=== PATIENT | male | born 1955 | race Caucasian/White ===

== ENCOUNTER 2017-06-22 13:05 | Emergency (ER) | payer OTHER ==
[~2017-06-22] VITALS: Ht 188 cm; Wt 102.1 kg
[~2017-06-22 13:05] MED LIST: ASPI325T8 PO; LISI-334 PO; METF-620 PO; WARF-78 PO
[2017-06-22] MEDS ORDERED: HYDROcodone/APAP 5/325MG 1 TAB TABLET PO ONE (15:00)
--- NOTE | 2017-06-22 15:09 | PHYS DOC ---
Past Medical History Past Medical History: Arthritis Past Surgical History: No Surgical History Alcohol Use: None Drug Use: Marijuana Adult General Chief Complaint Chief Complaint: OTHER COMPLAINTS HPI HPI Patient is a 62 year old male who presents with pain on his third and fourth digits of his right hand addition to swelling of his fingers. He states he was admitted here and was recently discharged on Coumadin. His neighbor is with him as helps Social medical history. She states that he had a clot in his ulnar artery of which vascular surgery tried to TPA and was only partially successful. They stated that he will have some sloughing of the skin over the third fourth and fifth digits however the last 3 days the third and fourth digit fingertip has turned black and necrotic and some swelling of his fingers. His INR was checked and was subtherapeutic a week ago and he was unable to get a hold of his primary care physician to given directions on how to increase his Coumadin levels. He did get in today with primary care physician who wanted be evaluated in the emergency department. He has received Forestdale from her care physician and on arrival to the ER and his pain is better now. He states he's had severe pain over the last 3 days and he was even had by some Forestdale along the street in order to help with his pain. He denies any fevers or chills or nausea or vomiting. Review of Systems Review of Systems Constitutional: Denies fever or chills [] Eyes: Denies change in visual acuity, redness, or eye pain [] HENT: Denies nasal congestion or sore throat [] Respiratory: Denies cough or shortness of breath [] Cardiovascular: No additional information not addressed in HPI [] GI: Denies abdominal pain, nausea, vomiting, bloody stools or diarrhea [] : Denies dysuria or hematuria [] Musculoskeletal: Denies back pain, positive for right third and fourth digit pain of right hand Integument: Denies rash or skin lesions [] Neurologic: Denies headache, focal weakness or sensory changes [] Endocrine: Denies polyuria or polydipsia [] Current Medications Current Medications Current Medications Medications (Trade) Dose Ordered Sig/Kit Start Time Stop Time Status Last Admin Dose Admin Acetaminophen/ Hydrocodone Bitart (Lortab 5/325) 2 tab 1X ONCE 06/22/17 15:00 06/22/17 15:01 DC 06/22/17 14:41 2 TAB Enoxaparin Sodium (Lovenox 150mg Syringe) 150 mg 1X ONCE 06/22/17 17:00 06/22/17 17:01 DC 06/22/17 17:16 150 MG Warfarin Sodium (Coumadin) 7.5 mg 1X ONCE 06/22/17 17:30 06/22/17 17:31 DC 06/22/17 17:30 7.5 MG Allergies Allergies Allergies Coded Allergies Type Severity Reaction Last Updated Verified No Known Drug Allergies 06/07/17 No Physical Exam Physical Exam Constitutional: Well developed, well nourished, no acute distress, non-toxic appearance. [] HENT: Normocephalic, atraumatic, bilateral external ears normal, oropharynx moist, no oral exudates, nose normal. [] Eyes: PERRLA, EOMI, conjunctiva normal, no discharge. [] Neck: Normal range of motion, no tenderness, supple, no stridor. [] Cardiovascular:Heart rate regular rhythm, no murmur [] Lungs & Thorax: Bilateral breath sounds clear to auscultation [] Abdomen: Bowel sounds normal, soft, no tenderness, no masses, no pulsatile masses. [] Skin: Warm, dry, no erythema, no rash. [] Back: No tenderness, no CVA tenderness. [] Extremities: Tender palpation over the third and fourth digits of the right hand from the PIP joints to the fingertips with black necrosis of both fingertips, ROM intact, no edema. [] Neurologic: Alert and oriented X 3, normal motor function, normal sensory function, no focal deficits noted. [] Psychologic: Affect normal, judgement normal, mood normal. [] Current Patient Data Vital Signs Vital Signs Date Time Temp Pulse Resp B/P (MAP) Pulse Ox O2 Delivery O2 Flow Rate FiO2 06/22/17 18:30 54 15 116/70 (85) 96 Room Air 06/22/17 14:20 98.7 98.7 Lab Values Laboratory Tests Test 06/22/17 15:40 White Blood Count 9.1 x10^3/uL (4.0-11.0) Red Blood Count 4.74 x10^6/uL (4.30-5.70) Hemoglobin 13.9 g/dL (13.0-17.5) Hematocrit 41.2 % (39.0-53.0) Mean Corpuscular Volume 87 fL (79-100) Mean Corpuscular Hemoglobin 29 pg (25-35) Mean Corpuscular Hemoglobin Concent 34 g/dL (31-37) Red Cell Distribution Width 13.8 % (11.5-14.5) Platelet Count 400 x10^3/uL (140-400) Neutrophils (%) (Auto) 54 % (31-73) Lymphocytes (%) (Auto) 34 % (24-48) Monocytes (%) (Auto) 9 % (0-9) Eosinophils (%) (Auto) 3 % (0-3) Basophils (%) (Auto) 1 % (0-3) Neutrophils # (Auto) 5.0 x10^3uL (1.8-7.7) Lymphocytes # (Auto) 3.0 x10^3/uL (1.0-4.8) Monocytes # (Auto) 0.8 x10^3/uL (0.0-1.1) Eosinophils # (Auto) 0.2 x10^3/uL (0.0-0.7) Basophils # (Auto) 0.1 x10^3/uL (0.0-0.2) Prothrombin Time 16.7 SEC (11.7-14.0) H Prothrombin Time INR 1.4 (0.8-1.1) H Sodium Level 134 mmol/L (136-145) L Potassium Level 4.3 mmol/L (3.5-5.1) Chloride Level 100 mmol/L (98-107) Carbon Dioxide Level 29 mmol/L (21-32) Anion Gap 5 (6-14) L Blood Urea Nitrogen 14 mg/dL (8-26) Creatinine 0.9 mg/dL (0.7-1.3) Estimated GFR (Cockcroft-Gault) 85.8 Glucose Level 157 mg/dL (70-99) H Lactic Acid Level 1.8 mmol/L (0.4-2.0) Calcium Level 9.1 mg/dL (8.5-10.1) Laboratory Tests 06/22/17 15:40 Laboratory Tests 06/22/17 15:40 EKG EKG [] Radiology/Procedures Radiology/Procedures [facility] [address] [place] [address] IMAGING REPORT Signed PATIENT: CHANTELLE GAMEZ ACCOUNT: [id number] : 1955 LOCATION: [facility] ICU AGE: 62 SEX: M EXAM STATUS: ADM IN ORD. PHYSICIAN: LEONARDO SALAZAR APRN REASON: Cyanotic fingers 3,4,5 of the right hand PROCEDURE: 63053 ANGIO EXTREMITY RIGHT Procedure: Right upper extremity diagnostic arteriogram, right upper extremity arterial thrombolysis. Clinical Indication: 62-year-old male with critical ischemia of the digits of the right hand for approximately 3 weeks. Sedation: Conscious sedation was administered for 121 minutes. The patient was monitored by a qualified independent observer throughout the time of sedation. Please refer to the medical record for exact doses of medications utilized to achieve moderate sedation. Antibiotics: None Exposure: Kerma-Area Product: 93 Gycm2 Sterility: All elements of maximal sterile barrier technique including the use of a cap, mask, sterile gown, sterile gloves, large sterile sheet, appropriate hand hygiene, and 2% chlorhexidine for cutaneous antisepsis (or acceptable alternative antiseptic per current guidelines) were followed for this procedure. Consent: The procedure was explained in its entirety to the patient or the patients designated financial services representative by a member of the treatment team, including a discussion of the risks, benefits and commonly accepted alternatives to the procedure, as well as the expected consequences of no therapy whatsoever. Discussion of the risks included, but was not limited to, those that are most frequent and those that are rare but possibly severe or life-threatening, as well as the possibility of unforeseen complications. Technique and Findings: Following informed consent, the patient was prepped and draped in usual sterile fashion. Ultrasound interrogation of the right groin revealed patency of the right common femoral artery. A hardcopy ultrasound image was recorded as a 21-gauge micropuncture needle was used to gain access to this vessel. The needle was exchanged over wire for a 5 Ivorian sheath. A flush catheter was advanced into the thoracic aorta and contrast aortography of the aortic arch was performed. The aorta is normal in appearance. There is a type II aortic arch. The brachycephalic artery, and left common carotid arteries are notable for mild proximal calcified atherosclerotic disease, without significant stenosis or ulceration. The right common carotid and bilateral subclavian and bilateral vertebral arteries are normal in appearance with no clinically significant stenoses, aneurysms, pseudoaneurysms, or occlusions. The patient became intermittently agitated at this juncture, and had difficulty following instructions and remaining motionless and cooperative throughout the remainder the examination. An angled catheter was then used in conjunction with a guidewire to gain access to the right axillary artery and contrast angiography of the right arm is performed. The right axillary, brachial, radial, and interosseous arteries are all patent, with no significant abnormality in these distributions. The radial artery provides in-line perfusion to a single palmar arch of the hand. This arch is widely patent, with only a small area of mild focal stenosis overlying the second digit. The digital arteries are derived from this arch, with intact perfusion to the first and second digits, but significantly reduced perfusion to the distal arteries of the third, fourth and fifth fingers. There is abrupt thrombotic occlusion of the distal ulnar artery, with wide patency of the proximal two thirds of this vessel. No significant collateral flow is seen about the wrist, and the second palmar arch is never identified. A microcatheter and wire were then advanced towards the area of occlusion, however the 150 cm catheter was too short to reach the thrombus. Nevertheless, the wire was used to mechanically disrupt thrombus, and was then removed. 10 mg of TPA was then infused into the ulnar artery immediately proximal to the thrombus via slow infusion through the microcatheter. Following a one hour dwell time, a completion arteriogram demonstrated no significant improvement. Findings were then discussed with Dr. Salazar. The catheter and microcatheter were removed and contrast angiography of the right groin was performed to assess for suitability of a closure device. The sheath was then exchanged for a star close device which was successfully utilized to obtain hemostasis. Complications: No immediate Impression: 1. Focal thrombotic occlusion of the distal right ulnar artery extending into one of the palmar arches, with embolic occlusion of the distal digital arteries involving the third, fourth, and fifth fingers. 2. Mild calcific atherosclerosis of the proximal brachycephalic artery and left common carotid arteries. No aneurysm, pseudoaneurysm, significant stenosis, or ulceration is identified involving the great vessels or proximal vessels of the right upper extremity. 3. Patency of 1 palmar arch, providing perfusion to the digital arteries as described above. This arch is primarily preserved by direct in line flow from widely patent radial artery. Interosseous artery is patent as well but contributes little flow to the arch. 4. No significant change following arterial TPA thrombolysis to the ulnar artery. DICTATED and SIGNED BY: FACUNDO CHAUAHN MD DATE: 06/08/171614 CC: LEONARDO SALAZAR APRN; COREY QUINN MD; NO PCP ~ [facility] [address] [place] [address] IMAGING REPORT Signed PATIENT: CHANTELLE GAMEZ ACCOUNT: [id number] : 1955 LOCATION: ER AGE: 62 SEX: M EXAM STATUS: DEP ER ORD. PHYSICIAN: DHARA ARCHULETA MD REASON: fingers black, Right hand PROCEDURE: UPPER EXT ARTERIAL RIGHT Right upper extremity arterial ultrasound HISTORY: Black fingers, history of right ulnar artery clot FINDINGS: Multiple color and spectral analysis waveform images of the right hand are submitted. There is demonstrable flow in the small arterial vessels of the right hand, lowest velocity obtained of pulmonary arch branch 9 cm/s versus other branch 33 cm/s. First digit and thumb velocities are on the order of 16 cm/s, second digit 19 cm/s, third digit 26 cm/s, and the fourth digit 43 cm/s. IMPRESSION: 1. There is demonstrable flow in the small arterial vessels of the hand. Electronically signed by: Monica Parry MD (06/22/2017 7:35 PM) [facility] DICTATED and SIGNED BY: MONICA PARRY MD DATE: 06/22/171928 CC: DHARA ARCHULETA MD; NO PCP ~ Impressions: Finger pain Course & Med Decision Making Course & Med Decision Making Pertinent Labs and Imaging studies reviewed. (See chart for details) Patient is left nausea acute amount. His INR is 1.4. His local pharmacy recommends doing increasing over 15% his Coumadin. He will need to take 7.5 mg Sunday was a Fridays and 5 mg arrest that time. He is to follow-up primary care physician of his INR checked in a week. He was given 1 dose of 150 mg subcutaneous Lovenox as a bridge. Ultrasound/Doppler's of the right hand shows increasing blood flow. Spoke with Dr. Salazar who is okay with the patient being discharged home and follow-up as an outpatient. He has an appointment on next Sunday. He is agreeable plan. Discharged with Forestdale for discomfort. Return precautions given. Jerome Disclaimer Jerome Disclaimer This electronic medical record was generated, in whole or in part, using a voice recognition dictation system. Departure Departure Impression: Primary Impression: Finger pain Disposition: HOME, SELF-CARE Condition: STABLE Referrals: NO PCP (PCP) Patient Instructions: Pain Medicine Instructions Additional Instructions: You were seen today for your finger pain. You being discharged home with Forestdale which is a narcotic pain medicine. Your fingers will continue to turn black at the tips like they're doing. You will need to follow up with your vascular surgeon. You will need to continue taking Coumadin and on Sunday take 7.5 mg, which is one and a half tablets and on the rest of the days take her normal one tablet. He will need to have your INR checked in a week. Please call your primary care physician and make these arrangements. Return to the ER for severe pain, fevers or other concerns. Please be careful taking Forestdale as it is a narcotic pain medicine given prior judgment making sleepy. Please don't drink alcohol while taking this medicine. Scripts Hydrocodone/Apap 5-325 (NORCO 5-325 TABLET) 1 Each Tablet 1-2 TAB PO Q4-6HRS Y for PAIN, #20 TAB Prov: DHARA ARCHULETA MD 06/22/17 Problem Qualifiers Primary Impression: Finger pain Laterality: right Qualified Codes: M79.644 - Pain in right finger(s) DHARA ARCHULETA MD Jun 22, 2017 15:09
[2017-06-22 15:51] LABS: BASO # 0.1 x10^3/uL (0.0-0.2); BASO % 1 % (0-3); EOS % 3 % (0-3); HEMATOCRIT 41.2 % (39.0-53.0); HEMOGLOBIN 13.9 g/dL (13.0-17.5); LYMPH % 34 % (24-48); MEAN CORPUSCULAR HEMOGLOBIN 29 pg (25-35); MEAN CORPUSCULAR HGB CONC 34 g/dL (31-37); MEAN CORPUSCULAR VOLUME 87 fL (79-100); MONO % 9 % (0-9); NEUT % 54 % (31-73); PLATELET COUNT 400 x10^3/uL (140-400); RED BLOOD COUNT 4.74 x10^6/uL (4.30-5.70); RED CELL DISTRIBUTION WIDTH 13.8 % (11.5-14.5); WHITE BLOOD COUNT 9.1 x10^3/uL (4.0-11.0)
[2017-06-22 16:00] LABS: INR 1.4 (0.8-1.1); PROTHROMBIN TIME PATIENT 16.7 SEC (11.7-14.0)
[2017-06-22 16:11] LABS: CALCIUM 9.1 mg/dL (8.5-10.1); CREATININE 0.9 mg/dL (0.7-1.3); GFR 85.8; POTASSIUM 4.3 mmol/L (3.5-5.1)
[2017-06-22] MEDS ORDERED: WARFARIN 7.5 MG TABLET. PO ONE (17:30)
[2017-06-22] MEDS ORDERED: HYDR-971 PO ×2 (18:00→18:02)
[2017-06-22 18:30] VITALS: BP 116/70
--- NOTE | 2017-06-22 19:38 | RAD ---
Right upper extremity arterial ultrasound HISTORY: Black fingers, history of right ulnar artery clot FINDINGS: Multiple color and spectral analysis waveform images of the right hand are submitted. There is demonstrable flow in the small arterial vessels of the right hand, lowest velocity obtained of pulmonary arch branch 9 cm/s versus other branch 33 cm/s. First digit and thumb velocities are on the order of 16 cm/s, second digit 19 cm/s, third digit 26 cm/s, and the fourth digit 43 cm/s. IMPRESSION: 1. There is demonstrable flow in the small arterial vessels of the hand. Electronically signed by: Adi Parry MD (06/22/2017 7:35 PM) [facility]
[2017-07-30] MEDS ORDERED: ASPI-482 PO (13:37)
[2017-07-30] MEDS ORDERED: WARF5TAB7 PO (13:37)
[2017-07-30] MEDS ORDERED: LISI10TA2 PO (13:37)
[2017-07-30] MEDS ORDERED: PREG150C PO (13:37)
== END 2017-06-22 18:40 | disposition home or self-care (01) ==
LOC: ER 13:05
DX: M79.644 Pain in right finger(s) (principal); M19.90 Unspecified osteoarthritis, unspecified site; Z79.01 Long term (current) use of anticoagulants
CPT/HCPCS: 36415; 80048; 83605; 85025; 85610; 93931; 96372; 99285; J1650

== ENCOUNTER 2017-07-31 10:15 | Day surgery (SDC) | payer OTHER ==
[~2017-07-31] VITALS: Ht 185.4 cm; Wt 103.0 kg
[~2017-07-31 10:15] MED LIST changes: +ASPI-482 PO; +HYDR-971 PO; +HYDROmorphone 2 MG/ML VIAL IV PRN; +IV RINGERS,LACTATED 1000ML 1,000 ML IV SCH; +LIDOCAINE 1% PF 2 ML VIAL. ID PRN; +LIDOCAINE 1% PF 48 ML, SODIUM BICARBONATE VIAL 12 MEQ in TOTAL VOLUME SYRINGE 0 ML ID ONE; +LISI10TA2 PO; +MORPHINE SULFATE 4 MG/ML DISP.SYRIN. IV PRN; +ONDANSETRON PF 4 MG/2 ML VIAL. IV PRN; +PREG150C PO; +PROCHLORPERAZINE 10 MG/2 ML VIAL. IV PRN; +WARF5TAB7 PO; +fentaNYL PF VIAL 100 MCG/2 ML VIAL IV PRN
[2017-07-31 11:00] LABS: BASO % 1 % (0-3); EOS % 2 % (0-3); HEMATOCRIT 42.1 % (39.0-53.0); HEMOGLOBIN 14.2 g/dL (13.0-17.5); LYMPH # 2.6 x10^3/uL (1.0-4.8); LYMPH % 32 % (24-48); MEAN CORPUSCULAR HEMOGLOBIN 29 pg (25-35); MEAN CORPUSCULAR HGB CONC 34 g/dL (31-37); MEAN CORPUSCULAR VOLUME 87 fL (79-100); MONO % 8 % (0-9); NEUT % 58 % (31-73); PLATELET COUNT 347 x10^3/uL (140-400); RED BLOOD COUNT 4.85 x10^6/uL (4.30-5.70); RED CELL DISTRIBUTION WIDTH 13.8 % (11.5-14.5); WHITE BLOOD COUNT 8.2 x10^3/uL (4.0-11.0)
[2017-07-31 11:22] LABS: INR 1.1 (0.8-1.1); PROTHROMBIN TIME PATIENT 13.5 SEC (11.7-14.0)
[2017-07-31 11:27] LABS: CALCIUM 9.8 mg/dL (8.5-10.1); CREATININE 0.8 mg/dL (0.7-1.3); GFR 98.3; POTASSIUM 3.9 mmol/L (3.5-5.1)
[2017-07-31] MEDS ORDERED: fentaNYL PF VIAL 100 MCG/2 ML VIAL ONE (13:15)
--- NOTE | 2017-07-31 13:20 | DISCH ---
DISCHARGE INSTRUCTIONS Condition on Discharge Condition on Discharge: Stable Activity After Discharge Activity Instructions for Disc: Activity as tolerated Wound Incision Care Wound/Incision Care: Keep wound elevated, Change dressing (may remove dressing on post operative day 2, keep covered with clean dry gauze) Follow-Up Follow up with: Dr. Centeno in 3 weeks [phone] COLLIN TEMPLETON APRN Jul 31, 2017 13:20
[2017-07-31] MEDS ORDERED: BUPIVACAINE 0.25% 50 ML VIAL. ONE (13:34)
[2017-07-31] MEDS ORDERED: BUPIVACAINE 0.25% 50 ML VIAL. IJ ONE (13:41)
[2017-07-31] MEDS ORDERED: DEXAMETHASONE SOD PHOS 20 MG/5 ML VIAL. ONE (13:48)
[2017-07-31] MEDS ORDERED: SEVOFLURANE 31 TO 60 MINUTES. IH ONE (13:48)
[2017-07-31] MEDS ORDERED: PROPOFOL 20 ML IV ONE (13:48)
[2017-07-31] MEDS ORDERED: LIDOCAINE 2% PF Vial for OR 5 ML VIAL. ONE (13:48)
[2017-07-31] MEDS ORDERED: ONDANSETRON PF 4 MG/2 ML VIAL. ONE (13:48)
--- NOTE | 2017-07-31 13:58 | PDOC ---
BRIEF OPERATIVE NOTE Date: Jul 31, 2017 Pre-Op Diagnosis gangrene digit tip 3,4 right hand Post-Op Diagnosis same Procedure Performed partial digit amputation fingers #3,4, right hand Surgeon Jacobo Spring Production Supervisor CHUCK Villar CNP, MD Jul 31, 2017 13:57
--- NOTE | 2017-07-31 14:02 | DISCH ---
DISCHARGE CONDITION ON DISCHARGE: Stable POST DISCHARGE ORDERS ACTIVITY ORDERS: Activity as tolerated WEIGHT BEARING STATUS: No restrictions WOUND/INCISION CARE: Keep wound elevated, Change dressing (may remove dressing on post operative day 2, keep covered with clean dry gauze) FOLLOW-UP PHYSICIAN FOLLOW-UP: Dr. Centeno in 3 weeks [phone] 08/22/2017 11:20 COLLIN TEMPLETON APRN Jul 31, 2017 14:01
[2017-07-31 14:27] VITALS: BP 137/82
[2017-07-31] MEDS ORDERED: HYDROcodone/APAP 5/325MG 1 TAB TABLET ONE (14:38)
[2017-07-31] MEDS ORDERED: HYDROcodone/APAP 5/325MG 1 TAB TABLET PO ONE (14:45)
--- NOTE | 2017-07-31 15:53 | OP ---
DATE OF SURGERY: 07/31/2017 PREPROCEDURE DIAGNOSIS: Gangrene of the digit tips #3 and #4, right hand. INDICATIONS: This is a 62-year-old male with a longstanding history of chronic tobacco use, who developed digital tip gangrene of the tips of the 3rd and 4th finger of the right hand. He underwent arteriographic evaluation and was noted to have some mild vascular disease, but nothing that was amenable to intervention and nothing which explains the digital artery occlusion. The patient has been treated conservatively. The fingers have remained painful, swollen and immobile because of the pain and he is brought to the operating room today for digit amputation. DESCRIPTION OF PROCEDURE: General anesthetic had been administered. A 0.25% Marcaine was placed as a digit block, blocking the third and fourth fingers just proximal to the metacarpophalangeal joint. A fishmouth incision was then placed just proximal to the PIP joint. Soft tissues were divided sharply. The bone was transected with a bone cutter and hemostasis achieved with electrocautery. Additional bony spicules were removed with a rongeur and the wounds were closed with interrupted 3-0 nylon sutures. Sterile dressings were applied. The patient moved to recovery in satisfactory stable condition. CHUCK CHANEY MD DR: MIRIAM/linda JOB#: [id number] / [id number]
== END 2017-07-31 15:07 | disposition home or self-care (01) ==
LOC: SURG 10:15
DX: E11.52 Type 2 diabetes mellitus with diabetic peripheral angiopathy with gangrene (principal); I96 Gangrene, not elsewhere classified; I73.9 Peripheral vascular disease, unspecified; I10 Essential (primary) hypertension; M19.91 Primary osteoarthritis, unspecified site; E11.9 Type 2 diabetes mellitus without complications; Z86.39 Personal history of other endocrine, nutritional and metabolic disease; Z72.0 Tobacco use; Z87.39 Personal history of other diseases of the musculoskeletal system and connective tissue; Z86.69 Personal history of other diseases of the nervous system and sense organs
CPT/HCPCS: 26951; 36415; 80048; 82962; 85025; 85610; 85730; J0690; J1100; J2405; J2704; J3010; J3490; A4461; J2001

== ENCOUNTER → 2018-11-08 | Outpatient (CLI) | payer OTHER ==
[~2018-11-08] MED LIST changes: +HYDR-3164 PO; -HYDR-971 PO; -HYDROmorphone 2 MG/ML VIAL IV PRN; -IV RINGERS,LACTATED 1000ML 1,000 ML IV SCH; -LIDOCAINE 1% PF 2 ML VIAL. ID PRN; -LIDOCAINE 1% PF 48 ML, SODIUM BICARBONATE VIAL 12 MEQ in TOTAL VOLUME SYRINGE 0 ML ID ONE; -METF-620 PO; +METF10007 PO; -MORPHINE SULFATE 4 MG/ML DISP.SYRIN. IV PRN; -ONDANSETRON PF 4 MG/2 ML VIAL. IV PRN; -PROCHLORPERAZINE 10 MG/2 ML VIAL. IV PRN; +WARF-31 PO; -WARF5TAB7 PO; -fentaNYL PF VIAL 100 MCG/2 ML VIAL IV PRN
--- NOTE | 2018-11-08 15:07 | KCIC ---
MRI of the cervical spine without contrast 11/08/2018 CLINICAL HISTORY: Neck pain which radiates down the left chest. TECHNIQUE: Unenhanced T1-weighted, T2-weighted and inversion recovery sagittal and gradient echo and T2-weighted axial images of the cervical spine were obtained. FINDINGS: Images from the study are degraded by patient motion. Mild lateral curvature of the cervical spine is seen convex to the right. There is straightening of the normal cervical lordosis. Degenerative signal changes are seen involving all of the disks of the cervical spine. Loss of height of the C4-5, C5-6, C6-7 and C7-T1 discs is noted. Degenerative signal changes are seen within the marrow surrounding these discs. No area of abnormal signal intensity is seen involving the cervical spinal cord. At the C2-3 disc space there is a mild generalized disc bulge. Degenerative changes are seen involving the uncovertebral and facet joints bilaterally. These findings do not result in significant central spinal canal or neural foraminal stenosis. At the C3-4 disc space there is a mild generalized disc bulge. Degenerative changes are seen involving the uncovertebral and facet joints, left greater than right. These findings do not result in significant central spinal canal stenosis. Mild left neural foraminal stenosis is seen. The right neural foramen is patent. At the C4-5 disc space there is a mild to moderate generalized disc bulge. Degenerative changes are seen involving the uncovertebral and facet joints, left greater than right. These findings when combined do not result in significant central spinal canal stenosis. Mild to moderate left greater than right neural foraminal stenosis is seen. At the C5-6 disc space there is a mild to moderate generalized disc bulge. This is eccentric to the left. Degenerative changes are seen involving the uncovertebral and facet joints, left greater than right. These findings when combined do not result in significant central spinal canal stenosis. Mild to moderate left greater than right neural foraminal stenosis is seen. At the C6-7 disc space there is a mild generalized disc bulge. Degenerative changes are seen involving the uncovertebral and facet joints, left greater than right. These findings when combined do not result in significant central spinal canal stenosis. Mild to moderate left neural foraminal stenosis is seen. The right neural foramen is patent. At the C7-T1 disc space there is a mild generalized disc bulge. Degenerative changes are seen involving the facet joints bilaterally. These findings do not result in significant central spinal canal or neural foraminal stenosis. IMPRESSION: Degenerative changes are seen throughout the cervical spine. These findings do not result in significant central spinal canal stenosis at any level. Multilevel neural foraminal stenosis of varying severity is seen as outlined above. Electronically signed by: Cristino Reese MD (11/08/2018 3:04 PM) [id number]
== END | disposition home or self-care (01) ==
LOC: KCIC MRI 12:50
PROVIDERS: ATTEND Family Medicine
DX: M47.892 Other spondylosis, cervical region (principal); M48.02 Spinal stenosis, cervical region; M47.893 Other spondylosis, cervicothoracic region; R29.890 Loss of height
CPT/HCPCS: 72141

== ENCOUNTER 2021-06-20 19:20 | Inpatient (IN) | payer OTHER ==
[~2021-06-20] VITALS: Ht 185.4 cm; Wt 99.3 kg
[2021-06-20 19:00] VITALS: BP 127/69
[~2021-06-20 19:20] MED LIST changes: -LISI-334 PO; +LISI10TA16 PO; -LISI10TA2 PO; +LISI20TA18 PO; -WARF-78 PO; +WARF5TAB2 PO
--- NOTE | 2021-06-20 20:00 | NUR ---
Patient transferred from [facility] to [facility] for evaluation of cellulitis by Fabrizio. Admitting diagnosis: chronic bilateral cellulitis of both legs from groin to toes. Patient also has reddened skin on face, left forearm and back. Skin on legs are reddened, warm to touch and peeling dry flaky skin. Skin on face, back and left forearm is just red but is intact. Patient has a healing scab on left elbow and a healing scabbed area on left lateral knee from a recent fall at [facility]. Patient has lung cancer with bone mets and has been taking chemotherapy. Patient states he lives alone since his 2 months ago. Patient states he uses a walker and also has a cane at home. Patient stated that he had a CVA 5 months ago and has some weakness on his left side. Patient also has a DVT in his left forearm from a recent PICC line. Patient is in no acute distress at this time. Will continue to monitor.
[2021-06-20 21:35] LABS: BASO % 0 % (0-3); EOS # 0.1 x10^3/uL (0.0-0.7); EOS % 2 % (0-3); HEMATOCRIT 21.5 % (39.0-53.0); HEMOGLOBIN 7.2 g/dL (13.0-17.5); LYMPH # 1.1 x10^3/uL (1.0-4.8); LYMPH % 33 % (24-48); MEAN CORPUSCULAR HEMOGLOBIN 32 pg (25-35); MEAN CORPUSCULAR HGB CONC 34 g/dL (31-37); MEAN CORPUSCULAR VOLUME 94 fL (79-100); MONO # 0.2 x10^3/uL (0.0-1.1); MONO % 6 % (0-9); NEUT % 60 % (31-73); PLATELET COUNT 85 x10^3/uL (140-400); RED CELL DISTRIBUTION WIDTH 19.2 % (11.5-14.5); WHITE BLOOD COUNT 3.3 x10^3/uL (4.0-11.0)
[2021-06-20 21:42] LABS: ALBUMIN 1.1 g/dL (3.4-5.0); ALBUMIN/GLOBULIN RATIO 0.2 (1.0-1.7); CALCIUM 7.9 mg/dL (8.5-10.1); CREATININE 1.1 mg/dL (0.7-1.3); GFR 67.2; POTASSIUM 3.4 mmol/L (3.5-5.1); TOTAL BILIRUBIN 0.2 mg/dL (0.2-1.0); TOTAL PROTEIN 6.3 g/dL (6.4-8.2)
[2021-06-20 22:18] LABS: BILIRUBIN,URINE NEGATIVE (NEG); CLARITY,URINE CLEAR; COLOR,URINE YELLOW; NITRITE,URINE NEGATIVE (NEG); PROTEIN,URINE NEGATIVE (NEG-TRACE); UROBILINOGEN,URINE 0.2 mg/dL (0.2 mg/dL)
[2021-06-20 22:24] LABS: BACTERIA,URINE 0 /HPF (0-FEW); RBC,URINE 0 /HPF (0-2); WBC,URINE 0 /HPF (0-4)
[2021-06-20] MEDS: PREGABALIN 75 MG CAPSULE PO SCH (22:41)
[2021-06-20 23:00] VITALS: BP 160/72
[2021-06-20] MEDS ORDERED: C.DIFF MED SCREEN BY RX. MC ONE (23:15)
[2021-06-20] MEDS: ZOLPIDEM 5 MG TABLET. PO PRN (23:57)
[2021-06-21 03:00] VITALS: BP 163/89
[2021-06-21 07:00] VITALS: BP 165/78
[2021-06-21] MEDS: PREGABALIN 75 MG CAPSULE PO SCH ×3 (09:15→20:42)
[2021-06-21] MEDS: ASPIRIN ENTERIC COATED 81 MG TABLET.DR. PO SCH (09:15)
[2021-06-21] MEDS: LISINOPRIL 10 MG TABLET PO SCH (09:16)
[2021-06-21 11:21] VITALS: BP_SYST 113; BP_SYST 122; BP_DIAS 100; BP_DIAS 115
[2021-06-21] MEDS: HYDROcodone/APAP 5/325MG 1 TAB TABLET PO PRN ×2 (11:37→20:43)
--- NOTE | 2021-06-21 11:43 | HP ---
ADMIT DATE: 06/21/2021 CHIEF COMPLAINT: Weakness, buttock wound, leg wounds, cellulitis. HISTORY OF PRESENT ILLNESS: The patient is a pleasant 66-year-old male who presented with above chief complaints to [facility]. He was transferred here for wound care. Suspect, he will be going to detention or long-term care afterwards. PAST MEDICAL HISTORY: Debility, chronic cellulitis, wounds, chronic anticoagulation, hypertension, arthritis, chronic pain, diabetes. ALLERGIES: None. FAMILY HISTORY: Diabetes. SOCIAL HISTORY: Does not drink, smoke or take drugs. MEDICATIONS: Reviewed. He is on Coumadin, lisinopril, aspirin, [place], Lyrica, metformin. REVIEW OF SYSTEMS: Unable to obtain. The patient is obtunded. PHYSICAL EXAMINATION: VITALS: Within normal limits and are stable. GENERAL: He is obtunded and resting with no apparent distress. HEENT: Normal cephalic atraumatic, external auditory canals are patent. EYES: Extraocular muscles are intact, pupils are equally round and reactive to light and accommodation. MUSCULOSKELETAL: Well developed, well nourished, good range of motion. ENDOCRINE: No thyromegaly was palpated. LYMPHATICS: No cervical chain or axillary nodes were noted. HEMATOPOIETIC: No bruising. NECK: Supple, no JVD, no thyromegaly was noted. LUNGS: Clear to auscultation in all lung ozuna without rhonchi or wheezing. HEART: RRR, S1, S2 present. Peripheral pulses intact, no obvious murmurs were noted. ABDOMEN: Soft, nontender. Positive bowel sounds no organomegaly, normal bowel sounds. EXTREMITIES: He has some cellulitis and extremely dry skin on the lower extremities. It appears to be ichthyosis. NEUROLOGIC: He is obtunded and resting with no apparent distress. PSYCHIATRIC: He is obtunded and resting with no apparent distress. SKIN: No ulcerations or rashes, good skin turgor, no jaundice. VASCULAR: Good capillary refill, neurovascular bundle appears to be intact. LABORATORY DATA: White count is 3.3, hemoglobin 7.2, platelets 85. Electrolytes are normal other than potassium of 3.4. ASSESSMENT AND PLAN: Cellulitis, wounds, hypokalemia, debility, leukopenia, anemia, and thrombocytopenia, all consistent with pancytopenia. The patient has been admitted. We are doing wound care, IV antibiotics. Consult Hematology. Consult the wound care team. Trend labs. Home meds. Deep venous thrombosis prophylaxis. Full code. ROJELIO DR: Colette TID: [id number]
--- NOTE | 2021-06-21 12:18 | NUR ---
SW following. Discussed with RN, pt from home, room air, COVID-19 negative (at [facility]). SW consult for pt possibly being evicted, spouse and drug use. Pt was at [place] for approx 7 days where it appears none of these concerns were addressed. Pt's about 2 months ago and they were living with her family, however now that she has passed, her family are reportedly evicting the patient due to his IV meth use and Marijuana use. PAT consult for drug use/abuse. Wound care and ID following. STEVAN will continue to follow.
--- NOTE | 2021-06-21 13:02 | CONS ---
DATE OF CONSULTATION: 06/21/2021 REFERRING PHYSICIAN: Lucius Cordova MD REASON FOR CONSULTATION: Cellulitis, on IV vancomycin, possible red man syndrome. HISTORY OF PRESENT ILLNESS: This is a 66-year-old male who was initially admitted at [facility] on 06/13/2021, where he presented with worsening redness going up the groin and lower abdominal area. The patient was on IV vancomycin prior to presentation. The patient also has history of lung cancer, on chemotherapy. The patient is a poor historian. History obtained from chart and medical staff. HPI is pending at this time. The patient was thought to have red man syndrome from IV vancomycin. PICC line from the left upper extremity has been removed. The patient is currently on ceftriaxone. White count on presentation at [facility] is 3.3, hemoglobin of 7.2, platelets of 85, creatinine of 1.1. C-reactive protein of 102.9. ID consultation has been requested for antibiotic management. Today, the patient states the redness remains the same. Denies any fevers, chills, nausea, vomiting, diarrhea, abdominal pain, symptoms. PAST MEDICAL HISTORY: History of lung cancer, metastatic to bone, on chemotherapy. History of cellulitis, treated by private ID MD, on IV vancomycin, duration unclear at this time, PICC line has been removed from the left upper extremity. History of stroke, DVT, COPD, obesity, urinary retention, bone pain secondary from mets from the lung, middle and right ring finger amputated, fibromyalgia, diabetes, psychiatric problem, bipolar disorder, depression, substance dependence. ALLERGIES: No known drug allergies. SOCIAL HISTORY: He uses methamphetamine. A 40-50 pack history of smoking. No ETOH. FAMILY HISTORY: As per HPI. REVIEW OF SYSTEMS: Negative except for above in HPI. CURRENT MEDICATIONS: Ceftriaxone, was on vancomycin. PHYSICAL EXAMINATION: VITAL SIGNS: Temperature 98.3, pulse 70, respiratory rate 20, blood pressure 165/78, oxygen saturation 97% on room air. GENERAL: Alert, oriented x 3 male, lying in bed comfortably, in no acute distress. No thrush. Poor dentition. NECK: Supple. LUNGS: Decreased breath sounds. No accessory muscle use. HEART: S1, S2. ABDOMEN: Soft, protuberant. No lower abdominal redness noted. GENITOURINARY: Briefs in place. No Rivera. EXTREMITIES: Edema, swelling mainly in the lower extremities, more pronounced on the left lower extremity. CENTRAL NERVOUS SYSTEM: Alert and oriented x 3, grossly nonfocal. PSYCHIATRIC: Calm and cooperative. LINES: PIV looks clean. Left upper extremity PICC line removed. LABORATORY DATA: WBC 3.3, hemoglobin 7.0, hematocrit 21.5, platelets 85. ESR 132. Sodium 137, potassium 3.4, chloride 106, bicarb 24, BUN 19, creatinine 1.1, glucose 132. AST 80. C-reactive protein 102.9. Albumin 1.1. UA negative. Hepatitis serology is noted. MICROBIOLOGY: None. IMAGING: None. IMPRESSION: 1. Left lower extremity cellulitis, worsening, on IV vancomycin per chart review from [facility]. I am assuming he has been on IV vanc for a few weeks now as outpt before presenting to [facility] on 06/13. 2. Left lower extremity deep vein thrombosis. PICC line has been removed. 3. History of lung cancer, metastatic to the bone, on chemotherapy. 4. Leukopenia and pancytopenia. 5. History of cerebrovascular accident. 6. Chronic obstructive pulmonary disease. 7. Diabetes mellitus. 8. Substance dependence. 9. Peripheral neuropathy. 10. Psychiatric illness. 11. Fibromyalgia. 12. History of a right middle and ring finger amputation. 13. History of bipolar disorder. RECOMMENDATIONS: 1. Continue ceftriaxone. 2. Start daptomycin. 3. Blood cultures at [facility] were negative. 4. Elevate left lower extremity. 5. Monitor labs and cultures. 6. Continue supportive care. Thank you for allowing me to participate in this patient's care. If you have any questions, do not hesitate to contact me. DAVID CUMMINGS: Lian TID: [id number] MTDD
[2021-06-21] MEDS: DAPTOmycin (GENERIC) IVPB 530 MG in IV NORMAL SALINE 50ML 50 ML IV SCH (13:12)
[2021-06-21 15:00] VITALS: BP 150/89
[2021-06-21] MEDS ORDERED: diphenhydrAMINE HCL 25 MG CAPSULE PO PRN (15:00)
[2021-06-21 19:00] VITALS: BP 145/81
[2021-06-21] MEDS: ZOLPIDEM 5 MG TABLET. PO PRN (20:42)
[2021-06-21 23:00] VITALS: BP 144/66
[2021-06-22 02:57] VITALS: BP 143/69
[2021-06-22] MEDS: HYDROcodone/APAP 5/325MG 1 TAB TABLET PO PRN ×2 (03:11→18:03)
[2021-06-22 04:44] LABS: BASO % 0 % (0-3); EOS # 0.2 x10^3/uL (0.0-0.7); EOS % 3 % (0-3); HEMATOCRIT 21.6 % (39.0-53.0); HEMOGLOBIN 7.3 g/dL (13.0-17.5); LYMPH # 1.3 x10^3/uL (1.0-4.8); LYMPH % 29 % (24-48); MEAN CORPUSCULAR HEMOGLOBIN 32 pg (25-35); MEAN CORPUSCULAR HGB CONC 34 g/dL (31-37); MEAN CORPUSCULAR VOLUME 94 fL (79-100); MONO # 0.4 x10^3/uL (0.0-1.1); MONO % 8 % (0-9); NEUT # 2.7 x10^3/uL (1.8-7.7); NEUT % 59 % (31-73); PLATELET COUNT 98 x10^3/uL (140-400); RED CELL DISTRIBUTION WIDTH 19.2 % (11.5-14.5); WHITE BLOOD COUNT 4.6 x10^3/uL (4.0-11.0)
[2021-06-22 05:00] LABS: CALCIUM 7.5 mg/dL (8.5-10.1); CREATININE 1.3 mg/dL (0.7-1.3); GFR 55.4
[2021-06-22 07:00] VITALS: BP 135/76
--- NOTE | 2021-06-22 08:07 | PDOC ---
Infectious Disease Note Subjective: Subjective Patient says he feels better today Still has dry skin Denies fever, nausea, vomiting, shortness of breath, diarrhea, abdominal pain, Otherwise as above Vital Signs: Vital Signs Vital Signs Date Time Temp Pulse Resp B/P (MAP) Pulse Ox O2 Delivery O2 Flow Rate FiO2 06/22/21 03:41 20 Room Air 06/22/21 02:57 98.0 85 143/69 (93) 93 98.0 Physical Exam: PHYSICAL EXAM GENERAL: Alert, oriented x 3 male, lying in bed comfortably, in no acute distress. No thrush. Poor dentition. NECK: Supple. LUNGS: Decreased breath sounds. No accessory muscle use. HEART: S1, S2. ABDOMEN: Soft, protuberant. No lower abdominal redness noted. GENITOURINARY: Briefs in place. No Rivera. EXTREMITIES: Edema, swelling mainly in the lower extremities, more pronounced on the left lower extremity. Erythema and warmth present. Induration present Left upper extremity swelling present. Improving per patient Since PICC line was removed. Right finger second and third amputation incision site well-healed CENTRAL NERVOUS SYSTEM: Alert and oriented x 3, grossly nonfocal. PSYCHIATRIC: Calm and cooperative. DERM dry skin, no generalized rash LINES: PIV looks clean. Left upper extremity PICC line removed. Medications: Inpatient Meds: Medications reviewed. Labs: Lab Laboratory Tests Test 06/21/21 11:10 06/21/21 15:56 06/21/21 20:54 06/22/21 03:30 Glucose (Fingerstick) 140 mg/dL (70-99) 130 mg/dL (70-99) 163 mg/dL (70-99) White Blood Count 4.6 x10^3/uL (4.0-11.0) Red Blood Count 2.30 x10^6/uL (4.30-5.70) Hemoglobin 7.3 g/dL (13.0-17.5) Hematocrit 21.6 % (39.0-53.0) Mean Corpuscular Volume 94 fL (79-100) Mean Corpuscular Hemoglobin 32 pg (25-35) Mean Corpuscular Hemoglobin Concent 34 g/dL (31-37) Red Cell Distribution Width 19.2 % (11.5-14.5) Platelet Count 98 x10^3/uL (140-400) Neutrophils (%) (Auto) 59 % (31-73) Lymphocytes (%) (Auto) 29 % (24-48) Monocytes (%) (Auto) 8 % (0-9) Eosinophils (%) (Auto) 3 % (0-3) Basophils (%) (Auto) 0 % (0-3) Neutrophils # (Auto) 2.7 x10^3/uL (1.8-7.7) Lymphocytes # (Auto) 1.3 x10^3/uL (1.0-4.8) Monocytes # (Auto) 0.4 x10^3/uL (0.0-1.1) Eosinophils # (Auto) 0.2 x10^3/uL (0.0-0.7) Basophils # (Auto) 0.0 x10^3/uL (0.0-0.2) Sodium Level 140 mmol/L (136-145) Potassium Level 3.0 mmol/L (3.5-5.1) Chloride Level 106 mmol/L (98-107) Carbon Dioxide Level 23 mmol/L (21-32) Anion Gap 11 (6-14) Blood Urea Nitrogen 16 mg/dL (8-26) Creatinine 1.3 mg/dL (0.7-1.3) Estimated GFR (Cockcroft-Gault) 55.4 Glucose Level 109 mg/dL (70-99) Calcium Level 7.5 mg/dL (8.5-10.1) Creatine Kinase 21 U/L (39-308) Objective: Assessment: 1. Left lower extremity cellulitis, worsening, on IV vancomycin per chart review from [facility]. I am assuming he has been on IV vanc through left upper extremity PICC for a few weeks now as outpt before presenting to [facility] on 06/13. IV Vanco discontinued due to concerns for possible "red man" syndrome 2. Left lower extremity deep vein thrombosis. PICC line has been removed. 3. History of lung cancer, metastatic to the bone, on chemotherapy. 4. Leukopenia and pancytopenia. 5. History of cerebrovascular accident. 6. Chronic obstructive pulmonary disease. 7. Diabetes mellitus. 8. Substance dependence. 9. Peripheral neuropathy. 10. Psychiatric illness. 11. Fibromyalgia. 12. History of a right middle and ring finger amputation. 13. History of bipolar disorder. Plan: Plan of Care Continue ceftriaxone and daptomycin Patient was on IV vancomycin exchange on hospital for couple of weeks prior to admission exact details are unclear at this time PICC line from left upper extremity was removed at [facility] prior to transfer Start micafungin monitor labs and cultures Continue local care Avoid scratching continue supportive care. TYRA LEE MD Jun 22, 2021 08:07
--- NOTE | 2021-06-22 08:31 | PDOC ---
[facility] PROGRESS NOTE Date of Service DOS: DATE: 06/22/21 TIME: 08:25 Chief Complaint Chief Complaint Weakness Buttock wound Leg wounds Cellulitis bilateral LE Debility Chronic anticoagulation HTN Arthritis Chronic pain Diabetes History of Present Illness History of Present Illness 06/22/2021: Pt seen and examined. Chart reviewed. Discussed with RNSADA Chamorro. Pt states itchiness has improved after use of skin cream. No excoriations seen on legs. Vitals/I&O Vitals/I&O: Vital Signs Date Time Temp Pulse Resp B/P (MAP) Pulse Ox O2 Delivery O2 Flow Rate FiO2 06/22/21 07:00 98.2 83 18 135/76 (95) 95 Room Air 98.2 I & O 06/21/21 06/21/21 06/22/21 15:00 23:00 07:00 Intake Total 1900 ml 900 ml Output Total 1250 ml 900 ml 1400 ml Balance 650 ml 0 ml -1400 ml Physical Exam Physical Exam: GENERAL: Alert, oriented x 3 male, lying in bed comfortably, in no acute distress. No thrush. Poor dentition. NECK: Supple. LUNGS: Decreased breath sounds. No accessory muscle use. HEART: S1, S2. ABDOMEN: Soft, protuberant. No lower abdominal redness noted. GENITOURINARY: Briefs in place. No Rivera. EXTREMITIES: Edema, swelling mainly in the lower extremities, more pronounced on the left lower extremity. Erythema and warmth present. Induration present Left upper extremity swelling present. Improving per patient Since PICC line was removed. Right finger second and third amputation incision site well-healed CENTRAL NERVOUS SYSTEM: Alert and oriented x 3, grossly nonfocal. PSYCHIATRIC: Calm and cooperative. DERM dry skin, no generalized rash LINES: PIV looks clean. Left upper extremity PICC line removed. General: Alert, Cooperative Lungs: Clear Extremities: Other (skin lesions noted, no excoriations) Labs Labs: Laboratory Tests Test 06/21/21 11:10 06/21/21 15:56 06/21/21 20:54 06/22/21 03:30 Glucose (Fingerstick) 140 mg/dL (70-99) 130 mg/dL (70-99) 163 mg/dL (70-99) White Blood Count 4.6 x10^3/uL (4.0-11.0) Red Blood Count 2.30 x10^6/uL (4.30-5.70) Hemoglobin 7.3 g/dL (13.0-17.5) Hematocrit 21.6 % (39.0-53.0) Mean Corpuscular Volume 94 fL (79-100) Mean Corpuscular Hemoglobin 32 pg (25-35) Mean Corpuscular Hemoglobin Concent 34 g/dL (31-37) Red Cell Distribution Width 19.2 % (11.5-14.5) Platelet Count 98 x10^3/uL (140-400) Neutrophils (%) (Auto) 59 % (31-73) Lymphocytes (%) (Auto) 29 % (24-48) Monocytes (%) (Auto) 8 % (0-9) Eosinophils (%) (Auto) 3 % (0-3) Basophils (%) (Auto) 0 % (0-3) Neutrophils # (Auto) 2.7 x10^3/uL (1.8-7.7) Lymphocytes # (Auto) 1.3 x10^3/uL (1.0-4.8) Monocytes # (Auto) 0.4 x10^3/uL (0.0-1.1) Eosinophils # (Auto) 0.2 x10^3/uL (0.0-0.7) Basophils # (Auto) 0.0 x10^3/uL (0.0-0.2) Sodium Level 140 mmol/L (136-145) Potassium Level 3.0 mmol/L (3.5-5.1) Chloride Level 106 mmol/L (98-107) Carbon Dioxide Level 23 mmol/L (21-32) Anion Gap 11 (6-14) Blood Urea Nitrogen 16 mg/dL (8-26) Creatinine 1.3 mg/dL (0.7-1.3) Estimated GFR (Cockcroft-Gault) 55.4 Glucose Level 109 mg/dL (70-99) Calcium Level 7.5 mg/dL (8.5-10.1) Creatine Kinase 21 U/L (39-308) Test 06/22/21 08:05 Glucose (Fingerstick) 111 mg/dL (70-99) Assessment and Plan Assessmemt and Plan Weakness Buttock wound Leg wounds Cellulitis bilateral LE Debility Chronic anticoagulation HTN Arthritis Chronic pain Diabetes Plan: Continue antibiotics (Daptomycin) Wound care Appreciate subpecialist input (ID) Encourage po intake Cardiac monitoring Trend labs DVT prophylaxis Comment Review of Relevant I have reviewed the following items thomas (where applicable) has been applied. Medications: Current Medications Medications (Trade) Dose Ordered Sig/Kit Route PRN Reason Start Time Stop Time Status Last Admin Dose Admin Aspirin (Ecotrin) 81 mg DAILY PO 06/21/21 09:00 06/21/21 09:15 Lisinopril (Prinivil) 10 mg DAILY PO 06/21/21 09:00 06/21/21 09:16 Acetaminophen/ Hydrocodone Bitart (Lortab 5/325) 1 tab PRN Q4HRS PRN PO PAIN 06/21/21 11:15 06/22/21 03:11 Daptomycin 530 mg/ Sodium Chloride 50 ml @ 100 mls/hr Q24H IV 06/21/21 13:00 06/21/21 13:12 Diphenhydramine HCl (Benadryl) 25 mg PRN Q6HRS PRN PO ITCHING 06/21/21 15:00 06/21/21 15:09 Justifications for Admission Other Justification JOHN ANDUJAR III DO Jun 22, 2021 08:31
[2021-06-22] MEDS: PREGABALIN 75 MG CAPSULE PO SCH ×3 (08:42→20:46)
[2021-06-22] MEDS: ASPIRIN ENTERIC COATED 81 MG TABLET.DR. PO SCH (08:42)
[2021-06-22] MEDS: LISINOPRIL 10 MG TABLET PO SCH (08:44)
--- NOTE | 2021-06-22 10:22 | NUR ---
SW following. Discussed with RNRachelle (HARSHAL) met with pt yesterday - pt does not see substance use asa concern. Pt provided with resources nd encouraged to participate in [place] program to address grief. PT/OT ordered. SW will continue to follow.
[2021-06-22 11:00] VITALS: BP 139/83
[2021-06-22] MEDS: cefTRIAXone IV Push 1 GM VIAL. IVP SCH (12:44)
[2021-06-22 13:07] LABS: LACTATE DEHYDROGENASE 260 U/L (85-227)
[2021-06-22] MEDS: DAPTOmycin (GENERIC) IVPB 530 MG in IV NORMAL SALINE 50ML 50 ML IV SCH (13:48)
[2021-06-22 15:00] VITALS: BP 138/77
[2021-06-22 15:14] LABS: HCV ULTRA QUANT PCR 8250000 IU/mL (.)
[2021-06-22] MEDS: MICAFUNGIN 100 MG in IV DEXTROSE 5% 100ML 100 ML IV SCH (15:43)
[2021-06-22] MEDS ORDERED: POTASSIUM CHLORIDE 20 MEQ TABLET.ER. PO ONE (17:00)
[2021-06-22 19:00] VITALS: BP 160/70
[2021-06-22] MEDS: ZOLPIDEM 5 MG TABLET. PO PRN (20:46)
[2021-06-22 23:00] VITALS: BP 130/66
[2021-06-23 03:00] VITALS: BP 135/81
[2021-06-23 04:39] LABS: BASO % 0 % (0-3); EOS # 0.1 x10^3/uL (0.0-0.7); EOS % 2 % (0-3); HEMATOCRIT 22.5 % (39.0-53.0); HEMOGLOBIN 7.5 g/dL (13.0-17.5); LYMPH # 1.4 x10^3/uL (1.0-4.8); LYMPH % 27 % (24-48); MEAN CORPUSCULAR HEMOGLOBIN 31 pg (25-35); MEAN CORPUSCULAR HGB CONC 33 g/dL (31-37); MEAN CORPUSCULAR VOLUME 94 fL (79-100); MONO # 0.6 x10^3/uL (0.0-1.1); MONO % 12 % (0-9); NEUT # 3.2 x10^3/uL (1.8-7.7); NEUT % 59 % (31-73); PLATELET COUNT 129 x10^3/uL (140-400); RED BLOOD COUNT 2.39 x10^6/uL (4.30-5.70); RED CELL DISTRIBUTION WIDTH 18.6 % (11.5-14.5); WHITE BLOOD COUNT 5.4 x10^3/uL (4.0-11.0)
[2021-06-23 04:53] LABS: CALCIUM 7.4 mg/dL (8.5-10.1); CREATININE 1.2 mg/dL (0.7-1.3); GFR 60.8; POTASSIUM 3.6 mmol/L (3.5-5.1)
[2021-06-23 07:00] VITALS: BP 137/77
--- NOTE | 2021-06-23 07:37 | PDOC ---
Infectious Disease Note Subjective: Subjective Patient says he feels better Swelling and redness is coming down though slowly Still has dry skin Denies fever, nausea, vomiting, shortness of breath, diarrhea, abdominal pain, Otherwise as above Vital Signs: Vital Signs Vital Signs Date Time Temp Pulse Resp B/P (MAP) Pulse Ox O2 Delivery O2 Flow Rate FiO2 06/23/21 03:00 98.2 78 20 135/81 (99) 94 Room Air 98.2 Physical Exam: PHYSICAL EXAM GENERAL: Alert, oriented x 3 male, lying in bed comfortably, in no acute distress. No thrush. Poor dentition. NECK: Supple. LUNGS: Decreased breath sounds. No accessory muscle use. HEART: S1, S2. ABDOMEN: Soft, protuberant. No lower abdominal redness noted. GENITOURINARY: Briefs in place. No Rivera. EXTREMITIES: Edema, swelling mainly in the lower extremities, more pronounced on the left lower extremity. Erythema and warmth present. Induration present Left upper extremity swelling present. Improving per patient Since PICC line was removed. Right finger second and third amputation incision site well-healed CENTRAL NERVOUS SYSTEM: Alert and oriented x 3, grossly nonfocal. PSYCHIATRIC: Calm and cooperative. DERM dry skin, no generalized rash LINES: PIV looks clean. Left upper extremity PICC line removed. Medications: Inpatient Meds: Medications reviewed. Labs: Lab Laboratory Tests Test 06/22/21 08:05 06/22/21 11:40 06/22/21 13:15 06/22/21 16:56 Glucose (Fingerstick) 111 mg/dL (70-99) 143 mg/dL (70-99) 153 mg/dL (70-99) Haptoglobin 376 mg/dL (32-363) Test 06/22/21 20:10 06/23/21 03:25 Glucose (Fingerstick) 145 mg/dL (70-99) White Blood Count 5.4 x10^3/uL (4.0-11.0) Red Blood Count 2.39 x10^6/uL (4.30-5.70) Hemoglobin 7.5 g/dL (13.0-17.5) Hematocrit 22.5 % (39.0-53.0) Mean Corpuscular Volume 94 fL (79-100) Mean Corpuscular Hemoglobin 31 pg (25-35) Mean Corpuscular Hemoglobin Concent 33 g/dL (31-37) Red Cell Distribution Width 18.6 % (11.5-14.5) Platelet Count 129 x10^3/uL (140-400) Neutrophils (%) (Auto) 59 % (31-73) Lymphocytes (%) (Auto) 27 % (24-48) Monocytes (%) (Auto) 12 % (0-9) Eosinophils (%) (Auto) 2 % (0-3) Basophils (%) (Auto) 0 % (0-3) Neutrophils # (Auto) 3.2 x10^3/uL (1.8-7.7) Lymphocytes # (Auto) 1.4 x10^3/uL (1.0-4.8) Monocytes # (Auto) 0.6 x10^3/uL (0.0-1.1) Eosinophils # (Auto) 0.1 x10^3/uL (0.0-0.7) Basophils # (Auto) 0.0 x10^3/uL (0.0-0.2) Sodium Level 139 mmol/L (136-145) Potassium Level 3.6 mmol/L (3.5-5.1) Chloride Level 106 mmol/L (98-107) Carbon Dioxide Level 28 mmol/L (21-32) Anion Gap 5 (6-14) Blood Urea Nitrogen 17 mg/dL (8-26) Creatinine 1.2 mg/dL (0.7-1.3) Estimated GFR (Cockcroft-Gault) 60.8 Glucose Level 113 mg/dL (70-99) Calcium Level 7.4 mg/dL (8.5-10.1) Objective: Assessment: 1. Left lower extremity cellulitis, worsening, on IV vancomycin per chart review from [facility]. I am assuming he has been on IV vanc through left upper extremity PICC for a few weeks now as outpt before presenting to [facility] on 06/13. IV Vanco discontinued due to concerns for possible "red man" syndrome 2. Left lower extremity deep vein thrombosis. PICC line has been removed. 3. History of lung cancer, metastatic to the bone, on chemotherapy. 4. Leukopenia and pancytopenia. 5. History of cerebrovascular accident. 6. Chronic obstructive pulmonary disease. 7. Diabetes mellitus. 8. Substance dependence. 9. Peripheral neuropathy. 10. Psychiatric illness. 11. Fibromyalgia. 12. History of a right middle and ring finger amputation. 13. History of bipolar disorder. 14. Hepatitis C Plan: Plan of Care Check HIV ab, discussed with RN Continue ceftriaxone and daptomycin Cont micafungin Patient was on IV vancomycin exchange on hospital for couple of weeks prior to admission exact details not known PICC line from left upper extremity was removed at [facility] prior to transfer Do not place PICC line Monitor labs and cultures Continue local care Avoid scratching Hopefully will be ready for discharge tomorrow continue supportive care. TYRA LEE MD Jun 23, 2021 07:37
[2021-06-23] MEDS: PREGABALIN 75 MG CAPSULE PO SCH ×2 (08:19→14:00)
[2021-06-23] MEDS: LISINOPRIL 10 MG TABLET PO SCH (08:19)
[2021-06-23] MEDS: ASPIRIN ENTERIC COATED 81 MG TABLET.DR. PO SCH (08:19)
--- NOTE | 2021-06-23 10:14 | NUR ---
SW following. Discussed with RN, OT recommending SNF. Family do not want pt to go to SNF, want him to come home when medically stable. Pt declined drug and alcohol services. SW will continue to follow.
--- NOTE | 2021-06-23 10:37 | SNU/HH DC ---
DISCHARGE WITH HOME HEALTH DISCHARGE INFORMATION: Condition on Discharge: Stable CODE STATUS: Code Status: Full HOME HEALTH: Face to Face: I certify this patient is under my care and that I, or a nurse practitioner or physician's assistant professor of anthropology working with me, had a face to face encounter that meets the physician face to face encounter requirements with this patient on []. Medical Complications: Other (Resolving cellulitis) Detention For: Assess & Educate Safety RN For Eval/Treatment: Yes Physical Therapy For: Evalulation/Treatment Occupational Therapy For: Evaluation/Treatment Home Health Aide For: Self-care TERMITE INSPECTOR For: Community Resources Pt Meets Homebound Status: Unsteady balance w/ amb, POST DISCHARGE ORDERS: Activity Instructions for Disc: Activity as tolerated Weight Bearing Status after Di: No restrictions DIET AFTER DISCHARGE: Cardiac Wound/Incision Care: Keep wound elevated, Change dressing CERTIFICATION STATEMENT: Certification Statement: Certification Statement: Based on the above finding, I certify that this patient is confined to the home and needs intermittent nursing home care, physical therapy and/or speech therapy, or continues to need occupational therapy.~ This patient is under my care, and I have initiated the establishment of the plan of care.~ This patient will be followed by myself or a community physician who will periodically review the plan of care. Home Meds Active Scripts Hydrocodone/Apap 5-325 (NORCO 5-325 TABLET) 1 Each Tablet, 1-2 TAB PO Q4-6HRS PRN for PAIN, #20 TAB Prov:DHARA ARCHULETA MD 06/22/17 Metformin Hcl (METFORMIN HCL) 1,000 Mg Tablet, 1000 MG PO BIDWMEALS for 60 Days, #12 TAB Prov:ALEX VIDALES MD 06/12/17 Reported Medications Pregabalin (LYRICA) 150 Mg Capsule, 150 MG PO TID for 30 Days, CAP 0 Refills 07/30/17 Aspirin (ASPIR 81) 81 Mg Tablet.dr, 81 MG PO DAILY, TAB 07/30/17 Lisinopril (LISINOPRIL) 10 Mg Tablet, 10 MG PO DAILY for FOR HYPERTENSION, #30 TAB 0 Refills 07/30/17 Discontinued Reported Medications Warfarin Sodium (WARFARIN SODIUM) 5 Mg Tablet, 7.5 MG PO DAILY, TAB 07/30/17 JOHN ANDUJAR III DO Jun 23, 2021 10:37
--- NOTE | 2021-06-23 10:59 | PDOC3 ---
[facility]-Discharge Summary Date of Discharge: Date of Discharge: Jun 23, 2021 Admission Diagnosis: Admitting Diagnosis: Cellulitis Discharge Diagnosis: Discharge Diagnosis: Weakness Buttock wound Leg wounds Cellulitis bilateral LE Debility Chronic anticoagulation HTN Arthritis Chronic pain Diabetes History of Hep A Consults: Consults: Infectious disease Hospital Course: Hospital Course: Patient is a elderly male who presented with cellulitis and weakness and mental status change He seemed to have an element of metabolic encephalopathy We gave the patient IV antibiotics and fluids we consulted infectious disease Over the past few days he slowly returned to his baseline Today I saw on exam he is up in the chair requesting discharge his legs look better. I discussed the case with Dr. Temple she is okay with him going home on [facility] Activity: Activity: Resume previous activity Medications: Home Meds Active Scripts Hydrocodone/Apap 5-325 (NORCO 5-325 TABLET) 1 Each Tablet, 1-2 TAB PO Q4-6HRS PRN for PAIN, #20 TAB Prov:DHARA ARCHULETA MD 06/22/17 Metformin Hcl (METFORMIN HCL) 1,000 Mg Tablet, 1000 MG PO BIDWMEALS for 60 Days, #12 TAB Prov:ALEX VIDALES MD 06/12/17 Reported Medications Pregabalin (LYRICA) 150 Mg Capsule, 150 MG PO TID for 30 Days, CAP 0 Refills 07/30/17 Aspirin (ASPIR 81) 81 Mg Tablet.dr, 81 MG PO DAILY, TAB 07/30/17 Lisinopril (LISINOPRIL) 10 Mg Tablet, 10 MG PO DAILY for FOR HYPERTENSION, #30 TAB 0 Refills 07/30/17 Discontinued Reported Medications Warfarin Sodium (WARFARIN SODIUM) 5 Mg Tablet, 7.5 MG PO DAILY, TAB 07/30/17 Scheduled Aspirin (Aspir 81), 81 MG PO DAILY, (Reported) Lisinopril (Lisinopril), 10 MG PO DAILY, (Reported) Metformin Hcl (Metformin Hcl), 1,000 MG PO BIDWMEALS Pregabalin (Lyrica), 150 MG PO TID, (Reported) Scheduled PRN Hydrocodone/Apap 5-325 ([place] 5-325 Tablet), 1-2 TAB PO Q4-6HRS PRN for PAIN Discontinued Medications Warfarin Sodium (Warfarin Sodium), 7.5 MG PO DAILY, (Reported) Discontinued Reason: TAKEN OFF Justicifation of Admission Dx: Justifications for Admission: Justification of Admission Dx: Comment: Comments: Cellulitis JOHN ANDUJAR III DO Jun 23, 2021 10:59
[2021-06-23 11:05] VITALS: BP 135/61
--- NOTE | 2021-06-23 11:14 | PDOC ---
[employer] PROGRESS NOTE Date of Service DOS: DATE: 06/23/21 TIME: 11:04 Chief Complaint Chief Complaint Cellulitis bilateral LE Weakness Buttock wound Leg wounds Debility Chronic anticoagulation HTN Arthritis Chronic pain Diabetes History of Present Illness History of Present Illness 06/23/2021: Pt was seen and examined. Discussd with RN. Chart reviewed. Pt is sitting up in chair in NAD with food and some trash at bedside. 06/22/2021: Pt seen and examined. Chart reviewed. Discussed with RN. Resting, NAD. Pt states itchiness has improved after use of skin cream. No excoriations seen on legs. Vitals/I&O Vitals/I&O: Vital Signs Date Time Temp Pulse Resp B/P (MAP) Pulse Ox O2 Delivery O2 Flow Rate FiO2 06/23/21 08:19 78 135/81 06/23/21 08:00 Room Air 06/23/21 07:00 98.2 18 95 98.2 I & O 06/22/21 06/22/21 06/23/21 15:00 23:00 07:00 Intake Total 890 ml 720 ml 800 ml Output Total 600 ml 1385 ml Balance 290 ml -665 ml 800 ml Physical Exam Physical Exam: GENERAL: Alert, oriented x 3 male, sitting up in chair, in no acute distress. No thrush. Poor dentition. NECK: Supple. LUNGS: Decreased breath sounds. No accessory muscle use. HEART: S1, S2. ABDOMEN: Soft, protuberant. No lower abdominal redness noted. GENITOURINARY: Briefs in place. No Rivera. EXTREMITIES: Edema, swelling mainly in the lower extremities, more pronounced on the left lower extremity. Erythema and warmth present. Induration present Left upper extremity swelling present. Improving per patient Since PICC line was removed. Right finger second and third amputation incision site well-healed CENTRAL NERVOUS SYSTEM: Alert and oriented x 3, grossly nonfocal. PSYCHIATRIC: Calm and cooperative. DERM dry skin, no generalized rash LINES: PIV looks clean. General: Alert, Cooperative Heart: Regular rate, Normal S1, Normal S2 Lungs: Clear Abdomen: Soft Extremities: No clubbing, No cyanosis, Other (skin lesions noted, no excoriatio ns. cellulitis is improving from prior examination) Labs Labs: Laboratory Tests Test 06/22/21 11:40 06/22/21 13:15 06/22/21 16:56 06/22/21 20:10 Glucose (Fingerstick) 143 mg/dL (70-99) 153 mg/dL (70-99) 145 mg/dL (70-99) Haptoglobin 376 mg/dL (32-363) Test 06/23/21 03:25 06/23/21 08:15 White Blood Count 5.4 x10^3/uL (4.0-11.0) Red Blood Count 2.39 x10^6/uL (4.30-5.70) Hemoglobin 7.5 g/dL (13.0-17.5) Hematocrit 22.5 % (39.0-53.0) Mean Corpuscular Volume 94 fL (79-100) Mean Corpuscular Hemoglobin 31 pg (25-35) Mean Corpuscular Hemoglobin Concent 33 g/dL (31-37) Red Cell Distribution Width 18.6 % (11.5-14.5) Platelet Count 129 x10^3/uL (140-400) Neutrophils (%) (Auto) 59 % (31-73) Lymphocytes (%) (Auto) 27 % (24-48) Monocytes (%) (Auto) 12 % (0-9) Eosinophils (%) (Auto) 2 % (0-3) Basophils (%) (Auto) 0 % (0-3) Neutrophils # (Auto) 3.2 x10^3/uL (1.8-7.7) Lymphocytes # (Auto) 1.4 x10^3/uL (1.0-4.8) Monocytes # (Auto) 0.6 x10^3/uL (0.0-1.1) Eosinophils # (Auto) 0.1 x10^3/uL (0.0-0.7) Basophils # (Auto) 0.0 x10^3/uL (0.0-0.2) Sodium Level 139 mmol/L (136-145) Potassium Level 3.6 mmol/L (3.5-5.1) Chloride Level 106 mmol/L (98-107) Carbon Dioxide Level 28 mmol/L (21-32) Anion Gap 5 (6-14) Blood Urea Nitrogen 17 mg/dL (8-26) Creatinine 1.2 mg/dL (0.7-1.3) Estimated GFR (Cockcroft-Gault) 60.8 Glucose Level 113 mg/dL (70-99) Calcium Level 7.4 mg/dL (8.5-10.1) Glucose (Fingerstick) 94 mg/dL (70-99) Review of Systems Review of Systems: Leg infection Depression Assessment and Plan Assessmemt and Plan Cellulitis bilateral LE Weakness Buttock wound Leg wounds Debility Chronic anticoagulation HTN Arthritis Chronic pain Diabetes Plan: Continue antibiotics with PO Zyvox for resolving cellulitis Continue micafungin Wound care PT/OT Appreciate subpecialist input (ID, Hematology, and PAT) Encourage PO intake Trend labs DVT prophylaxis Cardiac monitoring Dispo discharge pending workup and subspecialist input Comment Review of Relevant I have reviewed the following items thomas (where applicable) has been applied. Medications: Current Medications Medications (Trade) Dose Ordered Sig/Kit Route PRN Reason Start Time Stop Time Status Last Admin Dose Admin Ceftriaxone Sodium (Rocephin) 1 gm Q24H IVP 06/22/21 12:00 06/22/21 12:44 Micafungin Sodium 100 mg/Dextrose 100 ml @ 100 mls/hr Q24H IV 06/22/21 14:00 06/22/21 15:43 Potassium Chloride (Klor-Con) 40 meq 1X ONCE PO 06/22/21 17:00 06/22/21 17:01 DC 06/22/21 18:00 Justifications for Admission Other Justification JOHN ANDUJAR III DO Jun 23, 2021 11:14
[2021-06-23] MEDS ORDERED: LINEZOLID 600 MG TABLET PO SCH (12:00)
[2021-06-23] MEDS: cefTRIAXone IV Push 1 GM VIAL. IVP SCH (12:10)
[2021-06-23 12:14] LABS: KAPPA LAMBDA RATIO 1.96 (0.26-1.65); LAMBDA FREE 113.4 mg/L (5.7-26.3)
--- NOTE | 2021-06-23 12:17 | NUR ---
Dr. Temple paged to discuss discharge orders and medications
[2021-06-23] MEDS: MICAFUNGIN 100 MG in IV DEXTROSE 5% 100ML 100 ML IV SCH (12:39)
[2021-06-23] MEDS: DAPTOmycin (GENERIC) IVPB 530 MG in IV NORMAL SALINE 50ML 50 ML IV SCH (13:00)
[2021-06-23 13:14] LABS: ALBUM 1.8 g/dL (2.9-4.4); ALPHA 1 0.5 g/dL (0.0-0.4); ALPHA 2 0.9 g/dL (0.4-1.0); BETA 0.9 g/dL (0.7-1.3); GAMMA 1.9 g/dL (0.4-1.8); PROTEIN TOTAL 6.1 g/dL (6.0-8.5); SPEP AG RATIO 0.4 (0.7-1.7)
--- NOTE | 2021-06-23 13:15 | NUR ---
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 He stated he does not want to wait for pt to complete IV abx per Dr. Temple's orders prior to discharge. Pt. verbalized understanding that the wanted him to complete today's ordered abx, he stated he is ready to leave now. pt did receive 1/2 dose of IV Micafungin. Pt. discharged to home, verbalized understanding of discharge instructions. Zyvox 600mg PO BID x 7d called to pt's pharmacy per ISMAEL Proctor. Addendum: 06/23/21 at 1604 by JS MENDOZA RN Pt. refused d/c photo of L knee abrasion/skin tear.
== END 2021-06-23 13:15 | disposition home or self-care (01) | DRG 871 ==
LOC: 4 NORTH 19:20
PROVIDERS: ADMIT Student in an Organized Health Care Education/Training Program; ATTEND Student in an Organized Health Care Education/Training Program
DX: A41.9 Sepsis, unspecified organism (principal); G93.41 Metabolic encephalopathy; E43 Unspecified severe protein-calorie malnutrition; L03.116 Cellulitis of left lower limb; D61.818 Other pancytopenia; E87.6 Hypokalemia; B19.20 Unspecified viral hepatitis C without hepatic coma; E11.9 Type 2 diabetes mellitus without complications; F15.90 Other stimulant use, unspecified, uncomplicated; F31.9 Bipolar disorder, unspecified; G62.9 Polyneuropathy, unspecified; G89.29 Other chronic pain; I10 Essential (primary) hypertension; J44.9 Chronic obstructive pulmonary disease, unspecified; M19.90 Unspecified osteoarthritis, unspecified site; M79.7 Fibromyalgia; Z79.01 Long term (current) use of anticoagulants; Z83.3 Family history of diabetes mellitus; Z85.118 Personal history of other malignant neoplasm of bronchus and lung; Z86.73 Personal history of transient ischemic attack (TIA), and cerebral infarction without residual deficits; Z87.891 Personal history of nicotine dependence; Z68.28 Body mass index [BMI] 28.0-28.9, adult; Z92.21 Personal history of antineoplastic chemotherapy; Z86.718 Personal history of other venous thrombosis and embolism
CPT/HCPCS: 36415; 80048; 80053; 81001; 82525; 82550; 82607; 82668; 82728; 82962; 83010; 83520; 83540; 83550; 83615; 84165; 85025; 85045; 85651; 86140; 86705; 86709; 86803; 87040; 87340; 87522; J0696; J0878; J2248; J7060; 97116-GP; 97535-GO; G0378; Q0163